=== PATIENT | female | born 1935 | race Caucasian/White ===

== ENCOUNTER 2019-10-25 13:41 | Inpatient (IN) ==
[2019-10-25 13:53] VITALS: BMI 25.8
[2019-10-25] MEDS ORDERED: NS 1000 ML 1,000 ML IV ONE ×2 (14:23→16:41)
[2019-10-25] MEDS ORDERED: NS 1000 ML 1,000 ML ONE ×2 (14:25→16:42)
--- NOTE | 2019-10-25 14:46 | DR.DIZZY ---
HPI Time seen Time Seen by Provider: 10/25/19 14:46 PCP Primary Care Physician: FRANCOISE HPI Comment HPI Comment: PATIENT IS 83YR OLD FEMALE IN ER WITH HER FAMILY MEMBER WITH HYPOTENSION, DIZZINESS AND NEAR SYNCOPAL EPISODES. HER SYMPTOMS STARTED TODAY. S YMPTOMS INCREASED WITH PATIENT SITTING UP OR STANDING HOME. HAVE HISTORY OF HYPERTENSION. SHEIS WEAK AND DRAIN OF ENERGY. NO FEVER, COUGH CONGESTION OR DYSURIA. PATIENT HAVE INDWELLING PACE MAKER THAT APPEAR TO BE WORKING FINE. Complaint Chief Complaint Doctor Comments: DIZZINESS, LOW BLOOD PRESSURE AND NEAR SYNCOPAL EPISODE NOTED TODAY. Chief Complaint:: PATIENT STATES " I BEEN FEELING DIZZY LIGHT HEAD AND ALMOST PASSED OUT TODAY. MY BLOOD PRESSURES BEEN LOW. COVID-19 Coronavirus risk:travel/contact w/high risk person: No Has patient experienced Coronavirus symptoms: No Nurses Notes Reviewed Nurses Notes Review: Yes Source History Provided: Patient Mode of Arrival Mode of Arrival: Wheelchair Timing Onset of Chief Complaint: 10/25/19 Came on: Suddenly Duration Duration: Constant Duration: Hours Location of Weakness Weakness Location: None Context Onset: At rest History of: None Stroke Symptoms: Dizziness Associated signs and symptoms Associated Signs and Symptoms: Near Syncope and Weak PMH PMH Past Medical History: Yes Past Medical History: Hypertension Past Medical History Comment: PACEMAKER Past Surgical History: Yes Surgical History: Hysterectomy and Other Family History History of Family Medical Conditions: Yes Family Medical History: Diabetes Mellitus and Heart Failure Social History Alcohol Use: None Do you use any recreational Drugs:: No Travel Risk Coronavirus risk:travel/contact w/high risk person: No Has patient experienced Coronavirus symptoms: No Infectious screening Have you traveled outside the country in the last 6 months?: No Isolation: Standard ROS Review of Systems Constitutional: No Symptoms Reported, See HPI, Weakness and Fatigue; negative Fever Eyes: No Symptoms Reported and See HPI; negative Blurred Vision and Diplopia ENTM: No Symptoms Reported and See HPI; negative Ear Pain, Nose Discharge, Nose Congestion and Throat Pain Respiratoy: See HPI and Short of Breath; negative Moist Cough and Wheezing Cardiovascular: See HPI; negative Chest Pain, Edema and Syncope (NEAR SYNCOPE.) Gastrointestinal/Abdominal: No Symptoms Reported and See HPI; negative Abdominal Pain, Diarrhea, Nausea and Vomiting Genitourinary: No Symptoms Reported and See HPI; negative Dysuria and Hematuria Neurological: See HPI, Weakness and Dizziness; negative Headache Musculoskeletal: See HPI and Back Pain; negative Muscle Pain Integumentary: See HPI and Dryness; negative Change in Color, Rash and Juandice Hematologic/Lymphatic: No Symptoms Reported and See HPI; negative Easy Bruising and Swollen Glands Endocrine: Decreased Appetite; negative Increased Thirst and Increased Urine Psychiatric: No Symptoms Reported and See HPI All Other Systems: Reviewed and Negative PE Vital Signs Vitals: Temperature 97.6 F Pulse Rate 61 Respiratory Rate 18 Blood Pressure 134/89 O2 Sat by Pulse Oximetry 99 General Limitations: No Limitations General Appearance: Alert and In Distress (ON EXERTION.) Head Head Exam: Normal Inspection and Atraumatic Eyes Eye exam: Normal Appearance, PERRL and EOMI; negative Scleral Icterus and Conjunctival Injection Pupils: Regular, Round: Bilateral and Reactive: Bilateral Sclera/Conjunctival: Normal Inspection: Bilateral ENT ENT Exam: Normal Exam, Normal Oropharynx, Normal External Ear Exam and TM's Normal Bilaterally Neck Neck Exam: Normal Inspection, Full ROM and Trachea Midline; negative Tenderness and Lymphadenopathy Chest Chest Inspection: Normal Inspection and Symmetric Chest Wall Rise; negative Tenderness Respiratory Respiratory Exam: Normal Lung Sounds Bilat; negative Accessory Muscle Use, Chest Wall Tenderness and Respiratory Distress Respiratory Exam: Bilateral: Rhonchi and Lower: Rhonchi Cardiovascular Cardiovascular Exam: Regular Rate, Normal Rhythm and Normal Heart Sounds; negative Systolic Murmur and Diastolic Murmur Abdominal Exam Abdominal Exam: Normal Inspection, Normal Bowel Sounds and Soft; negative Tenderness Rectal Rectal Exam: Deferred Extremeties Extremities Exam: Normal Inspection and Normal Capillary Refill; negative Tenderness, Edema and Calf Tenderness Back Back Exam: Normal Inspection and Full ROM; negative (R) CVA Tenderness and (L) CVA Tenderness Neurologic Neurological Exam: Alert, Oriented X3 and CN II-XII Intact; negative Motor Sensory Deficit Patient Oriented To: Person, Place and Time Speech: Fluid Speech Cranial Nerve Exam: EOM Function (II, III, IV, ): Normal, Facial Sensation (V): Normal, Facial Palsy (VII): Normal, Gag reflex (XI): Normal, Spinal Accessory Function (XI): Normal and Tongue Deviation: Normal Motor Strength - LUE: 5/5 Motor Strength - RUE: 5/5 Motor Strength - LLE: 5/5 Motor Strength - RLE: 5/5 Upper Motor Neuron Exam: Babinski Sign: Normal Psychiatric Psychiatric Exam: Normal Affect and Normal Mood Skin Skin Exam: Dry MDM Additional Information Obtained Additional Information Obtained From: Family Differential Diagnosis Differential Diagnosis: Anemia, Dehydration, Dysrhythmia, Electrolyte disorder, Hypoglycemia, Labyrinthitis, Myocardial infarction, Pulmonary embolus, TIA and Central Vertigo COURSE Treatment Treatment: SEE ORDERS. NS 1L IV BOLUS. BP IMPROVING WITH HYDRATION. Consultation Consultation Comments: DISCUSSED PATIENT WITH DR. MCDOWELL AND SHE WILL ADMIT PATIENT. Education/Counseling Education/Counseling: Patient Educated On: Diagnosis ROR Labs Reviewed Laboratory Results Reviewed?: Yes Result Diagrams: 10/27/19 20:30 10/27/19 04:00 Laboratory: 10/25/19 15:14 Blood Blood Culture - Preliminary 10/25/19 15:10 Blood Blood Culture - Preliminary WBC 10.1 X10^3/uL (3.6-10.0) H 10/25/19 14:48 RBC 3.50 X10^6/uL (3.5-5.4) 10/25/19 14:48 Hgb 11.0 g/dL (12.0-16.0) L 10/25/19 14:48 Hct 32.6 % (36.0-47.0) L 10/25/19 14:48 MCV 93.0 fL (80.0-100.0) 10/25/19 14:48 MCH 31.5 pg (27.0-34.0) 10/25/19 14:48 MCHC 33.9 g/dL (33.0-35.0) 10/25/19 14:48 RDW 13.5 % (11.6-16.5) 10/25/19 14:48 Plt Count 393 X10^3/uL (150.0-450.0) 10/25/19 14:48 MPV 7.3 fL (7.4-11.0) L 10/25/19 14:48 Neut % (Auto) 74.3 % (42.0-75.0) 10/25/19 14:48 Lymph % (Auto) 15.1 % (21.0-51.0) L 10/25/19 14:48 [place] % (Auto) 6.5 % (0.0-13.0) 10/25/19 14:48 Eos % (Auto) 2.3 % (0.9-2.9) 10/25/19 14:48 Baso % (Auto) 1.8 % (0.2-1.0) H 10/25/19 14:48 Neut # (Auto) 7.5 x10^3/uL (2.2-4.8) H 10/25/19 14:48 Lymph # (Auto) 1.5 X10^3/uL (1.3-2.9) 10/25/19 14:48 [place] # (Auto) 0.7 x10^3/uL (0.3-0.8) 10/25/19 14:48 Eos # (Auto) 0.2 x10^3/uL (0.0-0.2) 10/25/19 14:48 Baso # (Auto) 0.2 X10^3/uL (0.0-0.1) H 10/25/19 14:48 Absolute Nucleated RBC 0.1 /100WBC 10/25/19 14:48 Sodium 138 mmol/L (136-145) 10/25/19 14:48 Corrected Sodium 139 mmol/L (136-145) 10/25/19 14:48 Potassium 5.2 mmol/L (3.5-5.1) H 10/25/19 14:48 Chloride 103 mmol/L (98-107) 10/25/19 14:48 Carbon Dioxide 25.8 mmol/L (21-32) 10/25/19 14:48 BUN 67 mg/dL (7-18) H 10/25/19 14:48 Creatinine 1.30 mg/dL (0.55-1.02) H 10/25/19 14:48 Est GFR (MDRD) Af Amer 50 (>60) L 10/25/19 14:48 Est GFR (MDRD) Non-Af 42 (>60) L 10/25/19 14:48 Glucose 146 mg/dL (65-99) H 10/25/19 14:48 Lactic Acid 0.8 mmol/L (0.4-2.0) 10/25/19 14:48 Calcium 9.5 mg/dL (8.5-10.1) 10/25/19 14:48 Corrected Calcium TNP 10/25/19 14:48 Total Bilirubin 0.30 mg/dL (0.2-1.0) 10/25/19 14:48 AST 12 Units/L (15-37) L 10/25/19 14:48 ALT 16 Units/L (12-78) 10/25/19 14:48 Alkaline Phosphatase 52 Units/L (46-116) 10/25/19 14:48 Creatine Kinase 22 Units/L (26-192) L 10/25/19 14:48 CK-MB (CK-2) < 1.0 ng/mL (0-4.0) 10/25/19 14:48 CK/CKMB % Calc 4.6 % (<4) 10/25/19 14:48 Troponin I < 0.02 ng/mL (0-1.5) 10/25/19 14:48 Total Protein 7.2 g/dL (6.4-8.2) 10/25/19 14:48 Albumin 3.5 g/dL (3.4-5.0) 10/25/19 14:48 Globulin 3.7 g/dL (2.5-4.5) 10/25/19 14:48 Albumin/Globulin Ratio 0.9 Ratio (1.1-2.1) L 10/25/19 14:48 Opioid Opioid Risk Tool Age (Beny box if 16-45): No Total: 0 Total Score Risk Category: Low Risk Copyright: Ari PENA predicting aberrant behaviors Diagnosis Discharge Problem: Near syncope, Abnormal CT of brain Hypotension Qualifiers: Hypotension type: orthostatic hypotension Qualified Code(s): I95.1 - Orthostatic hypotension Acute renal failure Qualifiers: Acute renal failure type: unspecified Qualified Code(s): N17.9 - Acute kidney failure, unspecified
[2019-10-25 15:12] LABS: BASOPHILS # (AUTO) 0.2 X10^3/uL (0.0-0.1); BASOPHILS % (AUTO) 1.8 % (0.2-1.0); EOSINOPHILS # (AUTO) 0.2 x10^3/uL (0.0-0.2); EOSINOPHILS % (AUTO) 2.3 % (0.9-2.9); HEMATOCRIT 32.6 % (36.0-47.0); LYMPHOCYTES # (AUTO) 1.5 X10^3/uL (1.3-2.9); LYMPHOCYTES % (AUTO) 15.1 % (21.0-51.0); MEAN CORPUSCULAR HEMOGLOBIN 31.5 pg (27.0-34.0); MEAN CORPUSCULAR HGB CONC 33.9 g/dL (33.0-35.0); MEAN PLATELET VOLUME 7.3 fL (7.4-11.0); MONOCYTES # (AUTO) 0.7 x10^3/uL (0.3-0.8); MONOCYTES % (AUTO) 6.5 % (0.0-13.0); NEUTROPHILS # (AUTO) 7.5 x10^3/uL (2.2-4.8); NEUTROPHILS % (AUTO) 74.3 % (42.0-75.0); PLATELET COUNT 393 X10^3/uL (150.0-450.0); RED CELL DISTRIBUTION WIDTH 13.5 % (11.6-16.5); WHITE BLOOD COUNT 10.1 X10^3/uL (3.6-10.0)
[2019-10-25 15:14] LABS: BLOOD UREA NITROGEN 67 mg/dL (7-18); CALCIUM 9.5 mg/dL (8.5-10.1); CARBON DIOXIDE 25.8 mmol/L (21-32); CHLORIDE 103 mmol/L (98-107); COR NA(FOR HYPERGLY) 139 mmol/L (136-145); SODIUM 138 mmol/L (136-145); TROPONIN I < 0.02 ng/mL (0-1.5); eGFR NON BLACK RACES 42 (>60)
[2019-10-25 15:19] LABS: ALANINE AMINOTRANSFERASE 16 Units/L (12-78); ALBUMIN 3.5 g/dL (3.4-5.0); ALKALINE PHOSPHATASE 52 Units/L (46-116); ASPARTATE AMINO TRANSFERASE 12 Units/L (15-37); CKMB % 4.6 % (<4); CREATINE KINASE 22 Units/L (26-192); CREATINE KINASE MB < 1.0 ng/mL (0-4.0); TOTAL PROTEIN 7.2 g/dL (6.4-8.2)
--- NOTE | 2019-10-25 15:21 | CT ---
HISTORY: [Altered mental status]Noncontrast head CT examination.Comparison: [None].Technique:Multiple axial images of the brain were obtained from the skull base to the vertex without administration of IV contrast.Findings:There is altered cerebral CT density seen within the right parieto-occipital junction of the mid convexity cerebral cortex on image number 17 of series 4 which reflects a watershed CVA/ischemic event in the MCA/PLASTICS WORKER distribution. Follow-up with MR imaging of the brain with diffusion-weighted sequencing should be considered. There is moderate sulcal and cisternal prominence as well as atherosclerotic change in the proximal intracranial carotid and vertebral arteries, which is not out of proportion to the patient's stated age. There is diffuse CT density alteration seen in the periventricular white matter of the high and mid-convexity, which is likely in the setting of small vessel disease and not out of proportion to the patient's stated age. There is mild bilateral ex vacuo ventricular dilatation without evidence for hydrocephalus or herniation syndrome. No midline shift is evident. No acute intraparenchymal hemorrhage or mass can be identified. No extra-axial fluid collections are seen. No alteration in the attenuation of the brain parenchyma can be identified to suggest acute or subacute ischemic change. However, if clinical symptoms are concerning for an acute CVA, then follow-up MRI with DWI sequencing is recommended. The extracranial structures are unremarkable. The sinuses and mastoids are clear.IMPRESSION:Altered cerebral CT density seen within the right parieto-occipital junction of the mid convexity cerebral cortex on image number 17 of series 4 which most likely reflects a watershed CVA/ischemic event in the MCA/PLASTICS WORKER distribution. Follow-up with MR imaging of the brain with diffusion-weighted sequencing should be considered to evaluate for acuity, based on medical symptoms. No other acute intracranial process or hemorrhage seen.Electronically signed by: MORALES VILLATORO III (October 25, 2019 15:20:31)
--- NOTE | 2019-10-25 15:24 | RAD ---
HISTORYDizziness.STUDYCHEST, 1 VIEWCOMPARISONNone available.FINDINGSThe trachea is midline. The cardiac silhouette is mildly enlarged. The lungs are clear without focal infiltrate, CHF, or effusion. The bony thorax is unremarkable. There is an uncomplicated left-sided pacing device observed in place. There is a scar-like nodular density seen within the right upper lung field/right lung apex for which follow-up with outpatient noncontrast chest CT imaging will be needed when medically feasible.IMPRESSIONThe trachea is midline. The cardiac silhouette is mildly enlarged. The lungs are clear without focal infiltrate, CHF, or effusion. The bony thorax is unremarkable. There is an uncomplicated left-sided pacing device observed in place. There is a scar-like nodular density seen within the right upper lung field/right lung apex for which follow-up with outpatient noncontrast chest CT imaging will be needed when medically feasible.Electronically signed by: MORALES VILLATORO III (October 25, 2019 15:23:16)
[2019-10-25 16:04] LABS: LACTIC ACID 0.8 mmol/L (0.4-2.0)
[2019-10-25] MEDS: NS 1000 ML 1,000 ML IV SCH (19:06)
[2019-10-25 19:33] LABS: BILIRUBIN,URINE NEGATIVE (NEGATIVE); BLOOD/HEMOGLOBIN,URINE NEGATIVE (NEGATIVE); GLUCOSE, URINE NEGATIVE (NEGATIVE); KETONES,URINE NEGATIVE (NEGATIVE); LEUKOCYTE ESTERASE ,URINE 2+ (NEGATIVE); NITRITES,URINE NEGATIVE (NEGATIVE); PROTEIN,URINE NEGATIVE (NEGATIVE); UROBILINOGEN,URINE NORMAL (NORMAL)
[2019-10-25 19:46] LABS: APPEARANCE,URINE CLEAR (CLEAR); BACTERIA,URINE NEGATIVE /HPF (NEGATIVE); COLOR,URINE YELLOW (YELLOW); RBC,URINE 0-2 /HPF (0-3); SQUAMOUS EPITHELIAL CELL,UR RARE /HPF (NEGATIVE)
[2019-10-25] MEDS ORDERED: ELIQUIS PO SCH (21:00)
[2019-10-26 00:05] LABS: CKMB % 5.6 % (<4); CREATINE KINASE 18 Units/L (26-192); CREATINE KINASE MB < 1.0 ng/mL (0-4.0); TROPONIN I < 0.02 ng/mL (0-1.5)
[2019-10-26] MEDS ORDERED: KAYEXALATE SUSP ONE (00:14)
[2019-10-26] MEDS ORDERED: KAYEXALATE SUSP PO SCH (01:00)
[2019-10-26] MEDS: NS 1000 ML 1,000 ML IV SCH ×2 (02:00→14:22)
[2019-10-26 06:11] LABS: BASOPHILS % (AUTO) 0.3 % (0.2-1.0); EOSINOPHILS # (AUTO) 0.2 x10^3/uL (0.0-0.2); EOSINOPHILS % (AUTO) 2.6 % (0.9-2.9); HEMATOCRIT 24.4 % (36.0-47.0); HEMOGLOBIN 8.5 g/dL (12.0-16.0); LYMPHOCYTES # (AUTO) 2.1 X10^3/uL (1.3-2.9); LYMPHOCYTES % (AUTO) 30.3 % (21.0-51.0); MEAN CORPUSCULAR HEMOGLOBIN 31.9 pg (27.0-34.0); MEAN CORPUSCULAR HGB CONC 34.8 g/dL (33.0-35.0); MEAN CORPUSCULAR VOLUME 91.9 fL (80.0-100.0); MEAN PLATELET VOLUME 6.9 fL (7.4-11.0); MONOCYTES # (AUTO) 0.8 x10^3/uL (0.3-0.8); MONOCYTES % (AUTO) 12.1 % (0.0-13.0); NEUTROPHILS # (AUTO) 3.8 x10^3/uL (2.2-4.8); NEUTROPHILS % (AUTO) 54.7 % (42.0-75.0); PLATELET COUNT 295 X10^3/uL (150.0-450.0); RED BLOOD COUNT 2.66 X10^6/uL (3.5-5.4); RED CELL DISTRIBUTION WIDTH 13.1 % (11.6-16.5); WHITE BLOOD COUNT 6.9 X10^3/uL (3.6-10.0)
[2019-10-26 06:37] LABS: ALANINE AMINOTRANSFERASE 14 Units/L (12-78); ALBUMIN 2.7 g/dL (3.4-5.0); ALKALINE PHOSPHATASE 37 Units/L (46-116); ASPARTATE AMINO TRANSFERASE 19 Units/L (15-37); BLOOD UREA NITROGEN 41 mg/dL (7-18); CALCIUM 8.2 mg/dL (8.5-10.1); CARBON DIOXIDE 23.6 mmol/L (21-32); CHLORIDE 109 mmol/L (98-107); CHOL/HDL RATIO 3.5 (0.0-5.0); CHOLESTEROL 123 mg/dL (0-200); CKMB % 6.3 % (<4); COR CA(FOR HYPOALB) 9.2 mg/dL (8.5-10.1); CREATINE KINASE 16 Units/L (26-192); CREATINE KINASE MB < 1.0 ng/mL (0-4.0); CREATININE 1.01 mg/dL (0.55-1.02); HDL CHOLESTEROL 35 mg/dL (40-60); MAGNESIUM 1.6 mg/dL (1.7-2.9); SODIUM 142 mmol/L (136-145); TOTAL PROTEIN 5.6 g/dL (6.4-8.2); TRIGLYCERIDES 106 mg/dL (0-150); TROPONIN I < 0.02 ng/mL (0-1.5); eGFR NON BLACK RACES 56 (>60)
[2019-10-26] MEDS: ASPIRIN EC 81 MG PO SCH (09:49)
[2019-10-26] MEDS: LIPITOR TAB 20 MG PO SCH (09:50)
[2019-10-26] MEDS: BETAPACE AF PO SCH ×2 (09:50→20:26)
--- NOTE | 2019-10-26 10:52 | DR.H&P ---
H&P History & Physical for Day of: H&P Date: 10/26/19 Chief Complaint Chief Complaint: dizziness Allergies Allergies Allergy/AdvReac Type Severity Reaction Status Date / Time No Known Drug Allergies Allergy Verified 10/05/19 22:46 [NKDA] History of Present Illness History of Present Illness: Ms. Rosenthal is a 83y/o female with a PMH of atrial fibrillation, pacemaker, HTN presented with dizziness and weakness. She reports feeling dizzy as she was walking yesterday and improved with resting. She did not pass out or fall but was about to. She reports this happened several times yesterday. No associated chest pain, diaphoresis or SOB. She had a pacemaker p laced last year. Denies any changes in medications recently. Denies any neurological symptoms including weakness in extremities. Denies N/V/D or abdominal pain. She does have anemia, was told she had blood in stool and is scheduled for colonoscopy at the end of October. She denies any melena now. She does report having low BP for the last few days, unable to recall the numbers. ED work-up: CT-head: Altered cerebral CT density seen within the right parieto-occipital junction of the mid convexitycerebral cortex on image number 17 of series 4 which most likely reflects a watershed CVA/ischemic event in the MCA/PAYROLL AUDITOR distribution. CXR: scar like nodular density seen in RULQ, outpatient non-contrast CT chest recommended. Labs: Hgb: 11 on admission, now 8.5, Cr: 1.30 > 1.01, troponin x 3 (-) Mg 1.6 Received IV fluids Plan: no neurological deficits on exam, dizziness improved with hydration. Unclear if CT-head showed artifact, unable to do MRI due to pacemaker present. Will repeat CT head today. ECHO and carotid U/S ordered. Start asa, statin. Continue gentle hydration. Resume sotalol, hold anti-hypertensives for now due to AGNIESZKA on admission. Anemia panel ordered, FOBT, monitor H/H, if continues to decline further, will consult Dr. Nance Replace Mg. Check orthostatic vitals, PT/OT. Past Medical History Past Medical History: Anemia and Hypertension Additional Medical History: Atrial fibrillation Past Surgical History Surgical History: Hysterectomy and Other Additional Surgical History: Pacemaker placement Family History Family Medical History: Diabetes Mellitus, Cancer and Heart Failure Social History Alcohol Use: None Drug Use: None Medications Home Medications: No Known Drug Allergies [NKDA] Allergy (Verified 10/05/19 22:46) CONTINUE taking the following medications amlodipine 5 mg PO DAILY 10/25/19 [History] apixaban [Eliquis] 5 mg PO BID 10/25/19 [History] hydrochlorothiazide 12.5 mg PO DAILY 10/25/19 [History] lisinopril 40 mg PO DAILY 10/25/19 [History] sotalol 80 mg PO BID 10/25/19 [History] Labs Result Diagrams: 10/26/19 05:30 10/26/19 05:30 Labs: Laboratory WBC 6.9 X10^3/uL (3.6-10.0) 10/26/19 05:30 RBC 2.66 X10^6/uL (3.5-5.4) L 10/26/19 05:30 Hgb 8.5 g/dL (12.0-16.0) L D 10/26/19 05:30 Hct 24.4 % (36.0-47.0) L 10/26/19 05:30 MCV 91.9 fL (80.0-100.0) 10/26/19 05:30 MCH 31.9 pg (27.0-34.0) 10/26/19 05:30 MCHC 34.8 g/dL (33.0-35.0) 10/26/19 05:30 RDW 13.1 % (11.6-16.5) 10/26/19 05:30 Plt Count 295 X10^3/uL (150.0-450.0) 10/26/19 05:30 MPV 6.9 fL (7.4-11.0) L 10/26/19 05:30 Neut % (Auto) 54.7 % (42.0-75.0) 10/26/19 05:30 Lymph % (Auto) 30.3 % (21.0-51.0) 10/26/19 05:30 [place] % (Auto) 12.1 % (0.0-13.0) 10/26/19 05:30 Eos % (Auto) 2.6 % (0.9-2.9) 10/26/19 05:30 Baso % (Auto) 0.3 % (0.2-1.0) 10/26/19 05:30 Neut # (Auto) 3.8 x10^3/uL (2.2-4.8) 10/26/19 05:30 Lymph # (Auto) 2.1 X10^3/uL (1.3-2.9) 10/26/19 05:30 [place] # (Auto) 0.8 x10^3/uL (0.3-0.8) 10/26/19 05:30 Eos # (Auto) 0.2 x10^3/uL (0.0-0.2) 10/26/19 05:30 Baso # (Auto) 0.0 X10^3/uL (0.0-0.1) 10/26/19 05:30 Absolute Nucleated RBC 0.1 /100WBC 10/26/19 05:30 PT 16.2 SECONDS (11.8-14.3) 10/26/19 05:30 INR Target Range - 10/26/19 05:30 INR 1.34 (0.8-1.3) H 10/26/19 05:30 APTT 32.3 SECONDS (22.9-36.5) 10/26/19 05:30 PTT Comment - 10/26/19 05:30 Sodium 142 mmol/L (136-145) 10/26/19 05:30 Corrected Sodium TNP 10/26/19 05:30 Potassium 4.0 mmol/L (3.5-5.1) 10/26/19 05:30 Chloride 109 mmol/L (98-107) H 10/26/19 05:30 Carbon Dioxide 23.6 mmol/L (21-32) 10/26/19 05:30 BUN 41 mg/dL (7-18) H 10/26/19 05:30 Creatinine 1.01 mg/dL (0.55-1.02) 10/26/19 05:30 Est GFR (MDRD) Af Amer > 60 (>60) 10/26/19 05:30 Est GFR (MDRD) Non-Af 56 (>60) L 10/26/19 05:30 Glucose 83 mg/dL (65-99) 10/26/19 05:30 Lactic Acid 0.8 mmol/L (0.4-2.0) 10/25/19 14:48 Calcium 8.2 mg/dL (8.5-10.1) L 10/26/19 05:30 Corrected Calcium 9.2 mg/dL (8.5-10.1) 10/26/19 05:30 Magnesium 1.6 mg/dL (1.7-2.9) L 10/26/19 05:30 Iron 129 ug/dL (50-175) 10/26/19 05:30 Transferrin 127 mg/dL (202-364) L 10/26/19 05:30 Ferritin 490 ng/mL (8-252) H 10/26/19 05:30 Total Bilirubin 0.20 mg/dL (0.2-1.0) 10/26/19 05:30 AST 19 Units/L (15-37) 10/26/19 05:30 ALT 14 Units/L (12-78) 10/26/19 05:30 Alkaline Phosphatase 37 Units/L (46-116) L 10/26/19 05:30 Creatine Kinase 16 Units/L (26-192) L 10/26/19 05:30 CK-MB (CK-2) < 1.0 ng/mL (0-4.0) 10/26/19 05:30 CK/CKMB % Calc 6.3 % (<4) 10/26/19 05:30 Troponin I < 0.02 ng/mL (0-1.5) 10/26/19 05:30 Total Protein 5.6 g/dL (6.4-8.2) L 10/26/19 05:30 Albumin 2.7 g/dL (3.4-5.0) L 10/26/19 05:30 Globulin 2.9 g/dL (2.5-4.5) 10/26/19 05:30 Albumin/Globulin Ratio 0.9 Ratio (1.1-2.1) L 10/26/19 05:30 Triglycerides 106 mg/dL (0-150) 10/26/19 05:30 Cholesterol 123 mg/dL (0-200) 10/26/19 05:30 LDL Cholesterol, Calc 67 mg/dL (0-100) 10/26/19 05:30 HDL Cholesterol 35 mg/dL (40-60) L 10/26/19 05:30 Cholesterol/HDL Ratio 3.5 (0.0-5.0) 10/26/19 05:30 Vitamin B12 190 pg/mL (193-986) L 10/26/19 05:30 Folate 14.6 ng/mL (>8.6) 10/26/19 05:30 Specimen Type Clean catch urine 10/25/19 19:19 Urine Color Yellow (YELLOW) 10/25/19 19:19 Urine Appearance Clear (CLEAR) 10/25/19 19: Urine pH 5.0 (5.0 - 8.0) 10/25/19 19:19 Ur Specific [place] 1.015 (1.000-1.030) 10/25/19 19:19 Urine Protein Negative (NEGATIVE) 10/25/19 19:19 Urine Glucose (UA) Negative (NEGATIVE) 10/25/19 19: Urine Ketones Negative (NEGATIVE) 10/25/19 19:19 Urine Occult Blood Negative (NEGATIVE) 10/25/19 19:19 Urine Nitrite Negative (NEGATIVE) 10/25/19 19: Urine Bilirubin Negative (NEGATIVE) 10/25/19 19:19 Urine Urobilinogen Normal (NORMAL) 10/25/19 19:19 Ur Leukocyte Esterase 2+ (NEGATIVE) 10/25/19 19:19 Urine RBC 0-2 /HPF (0-3) 10/25/19 19:19 Urine WBC 0-2 /HPF (0-5) 10/25/19 19:19 Ur Squamous Epith Cells Rare /HPF (NEGATIVE) 10/25/19 19:19 Urine Bacteria Negative /HPF (NEGATIVE) 10/25/19 19:19 Ur Culture Indicated? No/not indicated 10/25/19 19:19 Review of Systems Constitutional: Weakness Eyes: No Symptoms Reported ENT: No Symptoms Reported Respiratory: No Symptoms Reported Cardiovascular: Light Headedness Gastrointestinal: No Symptoms Reported Genitourinary: No Symptoms Reported Musculoskeletal: No Symptoms Reported Skin: No Symptoms Reported Neurological: No Symptoms Reported Physical Exam Vital Signs: Temperature 98.2 F Pulse Rate [Brachial] 75 Pulse Rate 62 Respiratory Rate 20 Blood Pressure [Right Arm] 122/68 Blood Pressure 146/67 O2 Sat by Pulse Oximetry 99 Oriented: Normal Eyes: Normal Ear: Normal Throat: Normal Respiratory: Clear Throughout Cardiovascular: Normal Auscultation: Bowel Sounds: Normal Tenderness: Normal Skin: Normal Musculoskeletal: Normal Psychiatric: Normal Mood Description: Calm Affect: Normal Speech Pattern: Clear and Appropriate Assessment/Plan (1) Near syncope: Status: Acute (2) AGNIESZKA (acute kidney injury): Status: Acute (3) Dizziness: Status: Acute (4) Hypomagnesemia: Status: Acute (5) Anemia: Qualifiers: Anemia type: unspecified type Qualified Code(s): D64.9 - Anemia, unspecified Status: Acute (6) Dehydration: Status: Acute (7) Lung nodule: Status: Acute (8) Pacemaker: Status: Acute Review H&P Reviewed: Yes Patient was examined?: Yes
[2019-10-26] MEDS: MAGNESIUM SULFATE 1 GRAM/100 mL PREMIX 1 GM/100 ML BAG IV ONE ×2 (14:23→15:06)
[2019-10-26] MEDS ORDERED: MAGNESIUM SULFATE 1 GRAM/100 mL PREMIX 1 G/100 ML BAG IV ONE (14:45)
--- NOTE | 2019-10-26 16:12 | CT ---
HISTORYAltered mental status, follow-up abnormal CT 10/25/2019STUDYBRAIN W/O CONTechnique: Axial noncontrast images with coronal and sagittal reformats. Dose reduction procedures were used with mA/kv adjusted for body size.[id number]/2020FINDINGSThe ventricles are normal in size, shape, and position. Once again noted is a peripheral area of decreased attenuation involving the right posterior parietal occipital cortex and subcortical white matter. This is unchanged in appearance when compared with the prior examination. This could represent evidence for an old CVA, subacute nonhemorrhagic CVA or recent nonhemorrhagic CVA. Age related cortical atrophy is present. MRI with diffusion imaging is recommended for further evaluation. There are no other areas of abnormal attenuation to suggest hemorrhage, mass lesion, or extra-axial fluid collection. The calvarium is intact. 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 MRI with diffusion imaging is again recommended to age this process.Age related cortical atrophyElectronically signed by: PEREZ ARELLANO (October 26, 2019 16:10:25)
[2019-10-27] MEDS: NS 1000 ML 1,000 ML IV SCH ×2 (03:33→08:07)
[2019-10-27 04:53] LABS: BASOPHILS # (AUTO) 0.2 X10^3/uL (0.0-0.1); BASOPHILS % (AUTO) 2.4 % (0.2-1.0); EOSINOPHILS # (AUTO) 0.3 x10^3/uL (0.0-0.2); HEMOGLOBIN 7.6 g/dL (12.0-16.0); LYMPHOCYTES % (AUTO) 30.1 % (21.0-51.0); MEAN CORPUSCULAR HEMOGLOBIN 31.9 pg (27.0-34.0); MEAN CORPUSCULAR HGB CONC 34.4 g/dL (33.0-35.0); MEAN CORPUSCULAR VOLUME 92.6 fL (80.0-100.0); MEAN PLATELET VOLUME 6.6 fL (7.4-11.0); MONOCYTES # (AUTO) 0.8 x10^3/uL (0.3-0.8); MONOCYTES % (AUTO) 11.6 % (0.0-13.0); NEUTROPHILS # (AUTO) 3.4 x10^3/uL (2.2-4.8); NEUTROPHILS % (AUTO) 50.9 % (42.0-75.0); PLATELET COUNT 284 X10^3/uL (150.0-450.0); RED BLOOD COUNT 2.38 X10^6/uL (3.5-5.4); RED CELL DISTRIBUTION WIDTH 13.6 % (11.6-16.5); WHITE BLOOD COUNT 6.6 X10^3/uL (3.6-10.0)
[2019-10-27 04:55] LABS: BLOOD UREA NITROGEN 20 mg/dL (7-18); CALCIUM 8.2 mg/dL (8.5-10.1); CARBON DIOXIDE 25.4 mmol/L (21-32); CHLORIDE 111 mmol/L (98-107); CREATININE 0.97 mg/dL (0.55-1.02); SODIUM 144 mmol/L (136-145); eGFR NON BLACK RACES 58 (>60)
[2019-10-27 05:04] LABS: PLATELET MORPHOLOGY COMMENT NORMAL (NORMAL)
[2019-10-27] MEDS: ASPIRIN EC 81 MG PO SCH (09:35)
[2019-10-27] MEDS: LIPITOR TAB 20 MG PO SCH (09:35)
[2019-10-27] MEDS: BETAPACE AF PO SCH ×2 (09:35→20:30)
[2019-10-27] MEDS ORDERED: NS 500 ML IV 500 ML IV ONE (11:02)
--- NOTE | 2019-10-27 11:08 | PCM.PROG ---
Progress Note Progress Note for Day of Date of Exam: 10/27/19 Subjective Subjective: Patient seen at bedside, reports feeling better. She states dizziness has improved, eating well. Denies any weakness. Repeat CT-head yesterday did show the occipital-parietal region non-hemorrhagic stroke, unable to determine if it's acute or chronic without MRI. Unable to do MRI here as jeyson waite has a pacemaker. Patient has no neurological deficits. Echo and carotid U/S pending for tomorrow. Labs: hgb trending down to 7.6, M.6 B12:190, Cr: 0.9 Plan: will transfuse 1 unit PRBCs, consult Dr. Mccoy for EGD/colonoscopy, continue to hold eliquis. Stop IVF as patient is eating. Will start oral Vit B12. Replace electrolytes as needed, monitor H/H. Past Medical Family Social History Past Med/Fam/Surg Hx: No changes since H&P Allergies: Allergies No Known Drug Allergies [NKDA] Allergy (Verified 10/05/19 22:46) Review of Systems ROS: No change since H&P Vital Signs and I&O's Vital Signs: Temperature 97.6 F Pulse Rate [Left] 71 Pulse Rate [Brachial] 59 Pulse Rate 62 Respiratory Rate 20 Blood Pressure [Left Arm] 142/70 Blood Pressure [Right Arm] 124/69 Blood Pressure 146/67 O2 Sat by Pulse Oximetry 100 Intake and Output: Intake & Output 10/24/19 10/25/19 10/26/19 10/27/19 23:59 23:59 23:59 23:59 Intake Total 2220 / 2220 2540 / 2540 600 / 600 Balance 2220 / 2220 2540 / 2540 600 / 600 Physical Exam Oriented: Normal Eyes: Normal Ear: Normal Throat: Normal Cardiovascular: Normal Auscultation: Bowel Sounds: Normal Tenderness: Normal Skin: Normal Musculoskeletal: Normal Psychiatric: Normal Mood Description: Calm Affect: Normal Speech Pattern: Clear and Appropriate Laboratory and Diagnostics Result Diagrams: 10/27/19 04:00 10/27/19 04:00 Labs: 10/25/19 15:14 Blood Blood Culture - Preliminary 10/25/19 15:10 Blood Blood Culture - Preliminary Laboratory WBC 6.6 X10^3/uL (3.6-10.0) 10/27/19 04:00 RBC 2.38 X10^6/uL (3.5-5.4) L 10/27/19 04:00 Hgb 7.6 g/dL (12.0-16.0) L 10/27/19 04:00 Hct 22.0 % (36.0-47.0) L 10/27/19 04:00 MCV 92.6 fL (80.0-100.0) 10/27/19 04:00 MCH 31.9 pg (27.0-34.0) 10/27/19 04:00 MCHC 34.4 g/dL (33.0-35.0) 10/27/19 04:00 RDW 13.6 % (11.6-16.5) 10/27/19 04:00 Plt Count 284 X10^3/uL (150.0-450.0) 10/27/19 04:00 Plt Count Comment Adequate (ADEQUATE) 10/27/19 04:00 MPV 6.6 fL (7.4-11.0) L 10/27/19 04:00 Neut % (Auto) 50.9 % (42.0-75.0) 10/27/19 04:00 Lymph % (Auto) 30.1 % (21.0-51.0) 10/27/19 04:00 [place] % (Auto) 11.6 % (0.0-13.0) 10/27/19 04:00 Eos % (Auto) 5.0 % (0.9-2.9) H 10/27/19 04:00 Baso % (Auto) 2.4 % (0.2-1.0) H 10/27/19 04:00 Neut # (Auto) 3.4 x10^3/uL (2.2-4.8) 10/27/19 04:00 Lymph # (Auto) 2.0 X10^3/uL (1.3-2.9) 10/27/19 04:00 [place] # (Auto) 0.8 x10^3/uL (0.3-0.8) 10/27/19 04:00 Eos # (Auto) 0.3 x10^3/uL (0.0-0.2) H 10/27/19 04:00 Baso # (Auto) 0.2 X10^3/uL (0.0-0.1) H 10/27/19 04:00 Absolute Nucleated RBC 0.0 /100WBC 10/27/19 04:00 Plt Morphology Comment Normal (NORMAL) 10/27/19 04:00 RBC Morphology Normal (NORMAL) 10/27/19 04:00 PT 16.2 SECONDS (11.8-14.3) 10/26/19 05:30 INR Target Range - 10/26/19 05:30 INR 1.34 (0.8-1.3) H 10/26/19 05:30 APTT 32.3 SECONDS (22.9-36.5) 10/26/19 05:30 PTT Comment - 10/26/19 05:30 Sodium 144 mmol/L (136-145) 10/27/19 04:00 Corrected Sodium TNP 10/27/19 04:00 Potassium 4.0 mmol/L (3.5-5.1) 10/27/19 04:00 Chloride 111 mmol/L (98-107) H 10/27/19 04:00 Carbon Dioxide 25.4 mmol/L (21-32) 10/27/19 04:00 BUN 20 mg/dL (7-18) H 10/27/19 04:00 Creatinine 0.97 mg/dL (0.55-1.02) 10/27/19 04:00 Est GFR (MDRD) Af Amer > 60 (>60) 10/27/19 04:00 Est GFR (MDRD) Non-Af 58 (>60) L 10/27/19 04:00 Glucose 86 mg/dL (65-99) 10/27/19 04:00 Lactic Acid 0.8 mmol/L (0.4-2.0) 10/25/19 14:48 Calcium 8.2 mg/dL (8.5-10.1) L 10/27/19 04:00 Corrected Calcium 9.2 mg/dL (8.5-10.1) 10/26/19 05:30 Magnesium 1.8 mg/dL (1.7-2.9) 10/27/19 04:00 Iron 129 ug/dL (50-175) 10/26/19 05:30 Transferrin 127 mg/dL (202-364) L 10/26/19 05:30 Ferritin 490 ng/mL (8-252) H 10/26/19 05:30 Total Bilirubin 0.20 mg/dL (0.2-1.0) 10/26/19 05:30 AST 19 Units/L (15-37) 10/26/19 05:30 ALT 14 Units/L (12-78) 10/26/19 05:30 Alkaline Phosphatase 37 Units/L (46-116) L 10/26/19 05:30 Creatine Kinase 16 Units/L (26-192) L 10/26/19 05:30 CK-MB (CK-2) < 1.0 ng/mL (0-4.0) 10/26/19 05:30 CK/CKMB % Calc 6.3 % (<4) 10/26/19 05:30 Troponin I < 0.02 ng/mL (0-1.5) 10/26/19 05:30 Total Protein 5.6 g/dL (6.4-8.2) L 10/26/19 05:30 Albumin 2.7 g/dL (3.4-5.0) L 10/26/19 05:30 Globulin 2.9 g/dL (2.5-4.5) 10/26/19 05:30 Albumin/Globulin Ratio 0.9 Ratio (1.1-2.1) L 10/26/19 05:30 Triglycerides 106 mg/dL (0-150) 10/26/19 05:30 Cholesterol 123 mg/dL (0-200) 10/26/19 05:30 LDL Cholesterol, Calc 67 mg/dL (0-100) 10/26/19 05:30 HDL Cholesterol 35 mg/dL (40-60) L 10/26/19 05:30 Cholesterol/HDL Ratio 3.5 (0.0-5.0) 10/26/19 05:30 Vitamin B12 190 pg/mL (193-986) L 10/26/19 05:30 Folate 14.6 ng/mL (>8.6) 10/26/19 05:30 Specimen Type Clean catch urine 10/25/19 19:19 Urine Color Yellow (YELLOW) 10/25/19 19:19 Urine Appearance Clear (CLEAR) 10/25/19 19:19 Urine pH 5.0 (5.0 - 8.0) 10/25/19 19:19 Ur Specific [place] 1.015 (1.000-1.030) 10/25/19 19:19 Urine Protein Negative (NEGATIVE) 10/25/19 19:19 Urine Glucose (UA) Negative (NEGATIVE) 10/25/19 19:19 Urine Ketones Negative (NEGATIVE) 10/25/19 19:19 Urine Occult Blood Negative (NEGATIVE) 10/25/19 19:19 Urine Nitrite Negative (NEGATIVE) 10/25/19 19:19 Urine Bilirubin Negative (NEGATIVE) 10/25/19 19:19 Urine Urobilinogen Normal (NORMAL) 10/25/19 19:19 Ur Leukocyte Esterase 2+ (NEGATIVE) 10/25/19 19:19 Urine RBC 0-2 /HPF (0-3) 10/25/19 19:19 Urine WBC 0-2 /HPF (0-5) 10/25/19 19:19 Ur Squamous Epith Cells Rare /HPF (NEGATIVE) 10/25/19 19:19 Urine Bacteria Negative /HPF (NEGATIVE) 10/25/19 19:19 Ur Culture Indicated? No/not indicated 10/25/19 19:19 Blood Type O POSITIVE 10/27/19 09:24 Antibody Screen Negative 10/27/19 09:24 Crossmatch See Detail 10/27/19 09:24 Plan (1) Anemia: Status: Acute Qualifiers: Anemia type: unspecified type Qualified Code(s): D64.9 - Anemia, unspecified (2) Near syncope: Status: Acute (3) AGNIESZKA (acute kidney injury): Status: Acute (4) Dizziness: Status: Acute (5) Hypomagnesemia: Status: Acute (6) Dehydration: Status: Acute (7) Lung nodule: Status: Acute (8) Pacemaker: Status: Acute
[2019-10-27] MEDS: VITAMIN B-12 PO SCH (12:09)
[2019-10-27 21:06] LABS: HEMATOCRIT 24.9 % (36.0-47.0); HEMOGLOBIN 8.6 g/dL (12.0-16.0)
[2019-10-28 06:03] LABS: BLOOD UREA NITROGEN 14 mg/dL (7-18); CARBON DIOXIDE 27.2 mmol/L (21-32); CHLORIDE 110 mmol/L (98-107); CREATININE 0.88 mg/dL (0.55-1.02); SODIUM 143 mmol/L (136-145); eGFR NON BLACK RACES > 60 (>60)
[2019-10-28 06:09] LABS: BASOPHILS # (AUTO) 0.2 X10^3/uL (0.0-0.1); BASOPHILS % (AUTO) 2.6 % (0.2-1.0); EOSINOPHILS # (AUTO) 0.4 x10^3/uL (0.0-0.2); EOSINOPHILS % (AUTO) 7.1 % (0.9-2.9); HEMATOCRIT 24.4 % (36.0-47.0); HEMOGLOBIN 8.5 g/dL (12.0-16.0); LYMPHOCYTES # (AUTO) 1.7 X10^3/uL (1.3-2.9); LYMPHOCYTES % (AUTO) 27.6 % (21.0-51.0); MEAN CORPUSCULAR HEMOGLOBIN 32.3 pg (27.0-34.0); MEAN CORPUSCULAR HGB CONC 35.1 g/dL (33.0-35.0); MEAN CORPUSCULAR VOLUME 92.1 fL (80.0-100.0); MEAN PLATELET VOLUME 6.8 fL (7.4-11.0); MONOCYTES # (AUTO) 0.7 x10^3/uL (0.3-0.8); MONOCYTES % (AUTO) 11.8 % (0.0-13.0); NEUTROPHILS # (AUTO) 3.1 x10^3/uL (2.2-4.8); NEUTROPHILS % (AUTO) 50.9 % (42.0-75.0); PLATELET COUNT 274 X10^3/uL (150.0-450.0); RED BLOOD COUNT 2.65 X10^6/uL (3.5-5.4); RED CELL DISTRIBUTION WIDTH 13.3 % (11.6-16.5); WHITE BLOOD COUNT 6.1 X10^3/uL (3.6-10.0)
--- NOTE | 2019-10-28 08:49 | VAS ---
HISTORYSYNCOPE, ACUTE CVA SYMPTOMSSTUDYCarotid Doppler examCOMPARISONNoneTECHNIQUEMultiple el scale and color flow Doppler images of the right and left carotid arterial system were obtained. The vertebral arterial system was evaluated as well.FINDINGSModerate degree of plaque is present in both carotid systems.On the right, peak systolic velocities in centimeter/sec of the right internal and common carotid arteries measure 72 and 51 respectively. The greatest ICA/CCA ratio on the right is 1.42On the left, peak systolic velocities in centimeter/sec of the left internal and common carotid arteries measure 79 and 88 respectively. The greatest ICA/CCA ratio on the left is 0.90.Antegrade flow is documented in patent vertebral arteries bilaterally.IMPRESSIONNo hemodynamically significant carotid stenosis seen on either sideElectronically signed by: PHANI HOANG (October 28, 2019 08:48:25)
--- NOTE | 2019-10-28 10:17 | PCM.PROG ---
Progress Note Progress Note for Day of Date of Exam: 10/28/19 Subjective Subjective: Patient seen at bedside, reports feeling better. She states dizziness has resolved. She received one unit of RBC's yesterday. Hgb 8.5 this Am, denies active bleeding. Dr. Mccoy consulted for EGD/Colonoscopy. Patient has been NPO since midnight. Labs: Hgb: 8.5 BUN/Cr: 14/0.88 Plan: follow Dr. Mccoy's recommendations, possible EGD today and colonoscopy tomorrow. Follow up ECHO and carotid U/S. Past Medical Family Social History Past Med/Fam/Surg Hx: No changes since H&P Allergies: Allergies No Known Drug Allergies [NKDA] Allergy (Verified 10/05/19 22:46) Review of Systems ROS: No change since H&P Vital Signs and I&O's Vital Signs: Temperature 98.0 F Pulse Rate [Left] 60 Pulse Rate [Brachial] 83 Pulse Rate 62 Respiratory Rate 18 Blood Pressure [Left Arm] 155/63 Blood Pressure [Right Arm] 137/67 Blood Pressure 146/67 O2 Sat by Pulse Oximetry 99 Intake and Output: Intake & Output 10/25/19 10/26/19 10/27/19 10/28/19 23:59 23:59 23:59 23:59 Intake Total 2220 / 2220 2540 / 2540 2540 / 2540 160 / 160 Balance 2220 / 2220 2540 / 2540 2540 / 2540 160 / 160 Physical Exam Oriented: Normal Eyes: Normal Ear: Normal Throat: Normal Cardiovascular: Normal Auscultation: Bowel Sounds: Normal Tenderness: Normal Skin: Normal Musculoskeletal: Normal Psychiatric: Normal Mood Description: Calm Affect: Normal Speech Pattern: Clear and Appropriate Laboratory and Diagnostics Result Diagrams: 10/28/19 04:30 10/28/19 04:30 Labs: 10/25/19 15:14 Blood Blood Culture - Preliminary 10/25/19 15:10 Blood Blood Culture - Preliminary Laboratory WBC 6.1 X10^3/uL (3.6-10.0) 10/28/19 04:30 RBC 2.65 X10^6/uL (3.5-5.4) L 10/28/19 04:30 Hgb 8.5 g/dL (12.0-16.0) L 10/28/19 04:30 Hct 24.4 % (36.0-47.0) L 10/28/19 04:30 MCV 92.1 fL (80.0-100.0) 10/28/19 04:30 MCH 32.3 pg (27.0-34.0) 10/28/19 04:30 MCHC 35.1 g/dL (33.0-35.0) H 10/28/19 04:30 RDW 13.3 % (11.6-16.5) 10/28/19 04:30 Plt Count 274 X10^3/uL (150.0-450.0) 10/28/19 04:30 Plt Count Comment Adequate (ADEQUATE) 10/27/19 04:00 MPV 6.8 fL (7.4-11.0) L 10/28/19 04:30 Neut % (Auto) 50.9 % (42.0-75.0) 10/28/19 04:30 Lymph % (Auto) 27.6 % (21.0-51.0) 10/28/19 04:30 [place] % (Auto) 11.8 % (0.0-13.0) 10/28/19 04:30 Eos % (Auto) 7.1 % (0.9-2.9) H 10/28/19 04:30 Baso % (Auto) 2.6 % (0.2-1.0) H 10/28/19 04:30 Neut # (Auto) 3.1 x10^3/uL (2.2-4.8) 10/28/19 04:30 Lymph # (Auto) 1.7 X10^3/uL (1.3-2.9) 10/28/19 04:30 [place] # (Auto) 0.7 x10^3/uL (0.3-0.8) 10/28/19 04:30 Eos # (Auto) 0.4 x10^3/uL (0.0-0.2) H 10/28/19 04:30 Baso # (Auto) 0.2 X10^3/uL (0.0-0.1) H 10/28/19 04:30 Absolute Nucleated RBC 0.0 /100WBC 10/28/19 04:30 Plt Morphology Comment Normal (NORMAL) 10/27/19 04:00 RBC Morphology Normal (NORMAL) 10/27/19 04:00 PT 16.2 SECONDS (11.8-14.3) 10/26/19 05:30 INR Target Range - 10/26/19 05:30 INR 1.34 (0.8-1.3) H 10/26/19 05:30 APTT 32.3 SECONDS (22.9-36.5) 10/26/19 05:30 PTT Comment - 10/26/19 05:30 Sodium 143 mmol/L (136-145) 10/28/19 04:30 Corrected Sodium TNP 10/28/19 04:30 Potassium 3.8 mmol/L (3.5-5.1) 10/28/19 04:30 Chloride 110 mmol/L (98-107) H 10/28/19 04:30 Carbon Dioxide 27.2 mmol/L (21-32) 10/28/19 04:30 BUN 14 mg/dL (7-18) 10/28/19 04:30 Creatinine 0.88 mg/dL (0.55-1.02) 10/28/19 04:30 Est GFR (MDRD) Af Amer > 60 (>60) 10/28/19 04:30 Est GFR (MDRD) Non-Af > 60 (>60) 10/28/19 04:30 Glucose 86 mg/dL (65-99) 10/28/19 04:30 Lactic Acid 0.8 mmol/L (0.4-2.0) 10/25/19 14:48 Calcium 8.0 mg/dL (8.5-10.1) L 10/28/19 04:30 Corrected Calcium 9.2 mg/dL (8.5-10.1) 10/26/19 05:30 Magnesium 1.8 mg/dL (1.7-2.9) 10/27/19 04:00 Iron 129 ug/dL (50-175) 10/26/19 05:30 Transferrin 127 mg/dL (202-364) L 10/26/19 05:30 Ferritin 490 ng/mL (8-252) H 10/26/19 05:30 Total Bilirubin 0.20 mg/dL (0.2-1.0) 10/26/19 05:30 AST 19 Units/L (15-37) 10/26/19 05:30 ALT 14 Units/L (12-78) 10/26/19 05:30 Alkaline Phosphatase 37 Units/L (46-116) L 10/26/19 05:30 Creatine Kinase 16 Units/L (26-192) L 10/26/19 05:30 CK-MB (CK-2) < 1.0 ng/mL (0-4.0) 10/26/19 05:30 CK/CKMB % Calc 6.3 % (<4) 10/26/19 05:30 Troponin I < 0.02 ng/mL (0-1.5) 10/26/19 05:30 Total Protein 5.6 g/dL (6.4-8.2) L 10/26/19 05:30 Albumin 2.7 g/dL (3.4-5.0) L 10/26/19 05:30 Globulin 2.9 g/dL (2.5-4.5) 10/26/19 05:30 Albumin/Globulin Ratio 0.9 Ratio (1.1-2.1) L 10/26/19 05:30 Triglycerides 106 mg/dL (0-150) 10/26/19 05:30 Cholesterol 123 mg/dL (0-200) 10/26/19 05:30 LDL Cholesterol, Calc 67 mg/dL (0-100) 10/26/19 05:30 HDL Cholesterol 35 mg/dL (40-60) L 10/26/19 05:30 Cholesterol/HDL Ratio 3.5 (0.0-5.0) 10/26/19 05:30 Vitamin B12 190 pg/mL (193-986) L 10/26/19 05:30 Folate 14.6 ng/mL (>8.6) 10/26/19 05:30 Specimen Type Clean catch urine 10/25/19 19:19 Urine Color Yellow (YELLOW) 10/25/19 19:19 Urine Appearance Clear (CLEAR) 10/25/19 19: Urine pH 5.0 (5.0 - 8.0) 10/25/19 19:19 Ur Specific [place] 1.015 (1.000-1.030) 10/25/19 19:19 Urine Protein Negative (NEGATIVE) 10/25/19 19:19 Urine Glucose (UA) Negative (NEGATIVE) 05/15/20 19:19 Urine Ketones Negative (NEGATIVE) 10/25/19 19:19 Urine Occult Blood Negative (NEGATIVE) 10/25/19 19:19 Urine Nitrite Negative (NEGATIVE) 10/25/19 19:19 Urine Bilirubin Negative (NEGATIVE) 10/25/19 19:19 Urine Urobilinogen Normal (NORMAL) 10/25/19 19:19 Ur Leukocyte Esterase 2+ (NEGATIVE) 10/25/19 19:19 Urine RBC 0-2 /HPF (0-3) 10/25/19 19:19 Urine WBC 0-2 /HPF (0-5) 10/25/19 19:19 Ur Squamous Epith Cells Rare /HPF (NEGATIVE) 10/25/19 19:19 Urine Bacteria Negative /HPF (NEGATIVE) 10/25/19 19:19 Ur Culture Indicated? No/not indicated 10/25/19 19:19 Blood Type O POSITIVE 10/27/19 09:24 Antibody Screen Negative 10/27/19 09:24 Crossmatch See Detail 10/27/19 09:24 Plan (1) Anemia: Status: Acute Qualifiers: Anemia type: unspecified type Qualified Code(s): D64.9 - Anemia, unspecified (2) Near syncope: Status: Acute (3) AGNIESZKA (acute kidney injury): Status: Acute (4) Dizziness: Status: Acute (5) Hypomagnesemia: Status: Acute (6) Dehydration: Status: Acute (7) Lung nodule: Status: Acute (8) Pacemaker: Status: Acute
[2019-10-28] MEDS ORDERED: DIPRIVAN VIAL 20 ML ONE (11:07)
[2019-10-28] MEDS ORDERED: LR 1000 ML IV 1,000 ML IV ONE (11:11)
--- NOTE | 2019-10-28 11:37 | OR.IMMED ---
Immediate Post-Op Note - Immediate Post-Op Note Pre-Op Diagnosis: anemia Post-Op Diagnosis: gastriculcer . Procedure: EGD with Bx Surgeon/Buckle Gluer: Aurelia Specimens Removed: Bx from antrum , DU Drains: NONE Complications: none Condition: Stable (on Carafate , Protonix , [place] diet .)
[2019-10-28] MEDS: CARAFATE ORAL SUSP PO SCH ×3 (13:19→21:04)
[2019-10-28] MEDS: PROTONIX INJ 40 MG VIAL IVP SCH ×2 (13:19→21:05)
[2019-10-28] MEDS: VITAMIN B-12 PO SCH (13:19)
[2019-10-28] MEDS: ASPIRIN EC 81 MG PO SCH (13:19)
[2019-10-28] MEDS: BETAPACE AF PO SCH ×2 (13:20→21:05)
[2019-10-28] MEDS: LIPITOR TAB 20 MG PO SCH (13:20)
[2019-10-29] MEDS: CARAFATE ORAL SUSP PO SCH (05:31)
[2019-10-29 06:10] LABS: BASOPHILS # (AUTO) 0.1 X10^3/uL (0.0-0.1); BASOPHILS % (AUTO) 1.4 % (0.2-1.0); EOSINOPHILS # (AUTO) 0.5 x10^3/uL (0.0-0.2); EOSINOPHILS % (AUTO) 6.2 % (0.9-2.9); HEMATOCRIT 24.7 % (36.0-47.0); HEMOGLOBIN 8.5 g/dL (12.0-16.0); LYMPHOCYTES # (AUTO) 1.6 X10^3/uL (1.3-2.9); LYMPHOCYTES % (AUTO) 19.7 % (21.0-51.0); MEAN CORPUSCULAR HEMOGLOBIN 32.1 pg (27.0-34.0); MEAN CORPUSCULAR HGB CONC 34.4 g/dL (33.0-35.0); MEAN CORPUSCULAR VOLUME 93.2 fL (80.0-100.0); MEAN PLATELET VOLUME 7.6 fL (7.4-11.0); MONOCYTES # (AUTO) 0.8 x10^3/uL (0.3-0.8); MONOCYTES % (AUTO) 10.2 % (0.0-13.0); NEUTROPHILS # (AUTO) 5.1 x10^3/uL (2.2-4.8); NEUTROPHILS % (AUTO) 62.5 % (42.0-75.0); PLATELET COUNT 267 X10^3/uL (150.0-450.0); RED BLOOD COUNT 2.65 X10^6/uL (3.5-5.4); RED CELL DISTRIBUTION WIDTH 13.5 % (11.6-16.5); WHITE BLOOD COUNT 8.2 X10^3/uL (3.6-10.0)
[2019-10-29 06:11] LABS: BLOOD UREA NITROGEN 15 mg/dL (7-18); CALCIUM 8.4 mg/dL (8.5-10.1); CARBON DIOXIDE 26.2 mmol/L (21-32); CHLORIDE 110 mmol/L (98-107); CREATININE 0.98 mg/dL (0.55-1.02); SODIUM 143 mmol/L (136-145); eGFR NON BLACK RACES 58 (>60)
[2019-10-29] MEDS ORDERED: MIRALAX POWDER (1 DOSE 17 G) PO ONE (08:11)
[2019-10-29] MEDS: ASPIRIN EC 81 MG PO SCH (08:46)
[2019-10-29] MEDS: LIPITOR TAB 20 MG PO SCH (08:46)
[2019-10-29] MEDS: VITAMIN B-12 PO SCH (08:47)
[2019-10-29] MEDS: PROTONIX INJ 40 MG VIAL IVP SCH (08:47)
[2019-10-29] MEDS: BETAPACE AF PO SCH (08:47)
[2019-10-29] MEDS ORDERED: COLACE SYRUP 100 MG UDC PO SCH (09:00)
[2019-10-29 12:00] VITALS: BP 129/60
== END 2019-10-29 16:37 | disposition home health service (06) | DRG 312 ==
LOC: ER 13:43 → MED/SURG 17:56
PROVIDERS: ADMIT Internal Medicine; ATTEND Internal Medicine
DX: R42 Dizziness and giddiness; I48.91 Unspecified atrial fibrillation; E86.0 Dehydration; Z11.59 Encounter for screening for other viral diseases; R93.0 Abnormal findings on diagnostic imaging of skull and head, not elsewhere classified; R91.1 Solitary pulmonary nodule; N17.8 Other acute kidney failure; Z87.11 Personal history of peptic ulcer disease; R94.31 Abnormal electrocardiogram [ECG] [EKG]; K25.3 Acute gastric ulcer without hemorrhage or perforation; D64.89 Other specified anemias; Z95.0 Presence of cardiac pacemaker; R41.82 Altered mental status, unspecified; K44.9 Diaphragmatic hernia without obstruction or gangrene; E83.42 Hypomagnesemia; R26.89 Other abnormalities of gait and mobility; I95.1 Orthostatic hypotension
CPT/HCPCS: 36415; 70450; 71010; 71045; 80048; 80053; 80061; 81001; 82378; 82550; 82553; 82607; 82728; 82746; 83540; 83605; 83735; 84466; 84484; 85014; 85018; 85025; 85610; 85730; 86850; 86900; 86901; 86922; 87040; 87635; 88112; 88305; 88342; 93005; 93306; 93880; 94760; 96365; 96367; 97110; 97161; 97166; 97535; 99100; 99284; A4222; C9113; J3475; J7030; J7040; P9016

== ENCOUNTER 2021-06-14 18:16 | Inpatient (IN) ==
[2021-06-14 18:32] VITALS: BMI 28.1
[2021-06-14 19:30] LABS: ABG ALLEN TEST POS; ABG BASE EXCESS 4.2 mmol/L (-2.0-2.0); ABG HCO3 28.4 mmol/L (22-26)
[2021-06-14 19:33] LABS: BASOPHILS % (AUTO) 0.5 % (0.2-1.0); EOSINOPHILS % (AUTO) 0.1 % (0.9-2.9); HEMOGLOBIN 12.8 g/dL (12.0-16.0); LYMPHOCYTES # (AUTO) 0.4 X10^3/uL (1.3-2.9); LYMPHOCYTES % (AUTO) 6.7 % (21.0-51.0); MEAN CORPUSCULAR HEMOGLOBIN 30.6 pg (27.0-34.0); MEAN CORPUSCULAR HGB CONC 34.6 g/dL (33.0-35.0); MEAN CORPUSCULAR VOLUME 88.7 fL (80.0-100.0); MEAN PLATELET VOLUME 7.4 fL (7.4-11.0); MONOCYTES # (AUTO) 1.2 x10^3/uL (0.3-0.8); MONOCYTES % (AUTO) 20.9 % (0.0-13.0); NEUTROPHILS # (AUTO) 4.1 x10^3/uL (2.2-4.8); NEUTROPHILS % (AUTO) 71.8 % (42.0-75.0); PLATELET COUNT 199 X10^3/uL (150.0-450.0); RED BLOOD COUNT 4.17 X10^6/uL (3.5-5.4); RED CELL DISTRIBUTION WIDTH 13.9 % (11.6-16.5); WHITE BLOOD COUNT 5.8 X10^3/uL (3.6-10.0)
--- NOTE | 2021-06-14 19:40 | DR.SOBA ---
HPI Time Seen Time Seen by Provider: 06/14/21 19:40 Primary Care Physician Primary Care Physician: ERICANT Complaints Chief Complaint:: PT TESTED POSITIVE FOR COVID ON MONDAY AT [facility] AND PT STATES SHE HAS GOTTEN SICKER. SHE IS C/O DYSPNEA, "COUGHING ALOT, WEAK". PT DENIES FEVER. PRODUCTIVE COUGH. DENIES N/V/D Self Treatment fo Chief Complaint: PT WAS PRESCRIBED BENZONATATE AND LEVOCETIRIZINE AT [facility] AND IS CONTINUING TO TAKE THESE. COVID-19 Coronavirus risk:travel/contact w/high risk person: Yes Has patient experienced Coronavirus symptoms: Yes Coronavirus symptoms experienced: Coughing and Shortness of Breath Source History Provided: Patient and Family Member Mode of Arrival Mode of Arrival: Wheelchair Timing Onset of Chief Complaint: 06/11/21 PMH PMH Past Medical History: Yes Past Medical History: Anemia and Hypertension Past Surgical History: Yes Surgical History: Hysterectomy and Other Past Surgical History Comment: PACEMAKER Family History History of Family Medical Conditions: Yes Family Medical History: Diabetes Mellitus, Cancer and Heart Failure Social History Does any household member use tobacco: No Alcohol Use: None Do you use any recreational Drugs:: No Lives With: Alone Lives Where: Home Travel Risk Coronavirus risk:travel/contact w/high risk person: Yes Has patient experienced Coronavirus symptoms: Yes Coronavirus symptoms experienced: Coughing and Shortness of Breath Infectious screening In the last 2 months have you had wt loss of >10#?: NO Have you had fever, night sweats or hemotysis?: No Have you traveled outside the country in the last 6 months?: No Isolation: Air[place]/Negative Pressure PE Vital Signs Vitals: Temperature 98.8 F Pulse Rate [Left Brachial] 68 Pulse Rate 79 Respiratory Rate 20 Blood Pressure [Left Arm] 167/64 Blood Pressure 177/84 O2 Sat by Pulse Oximetry 95 ROR Labs Reviewed Result Diagrams: 06/15/21 04:12 06/15/21 04:12 Laboratory: WBC 5.8 X10^3/uL (3.6-10.0) 06/14/21 19:18 RBC 4.17 X10^6/uL (3.5-5.4) 06/14/21 19:18 Hgb 12.8 g/dL (12.0-16.0) 06/14/21 19:18 Hct 37.0 % (36.0-47.0) 06/14/21 19:18 MCV 88.7 fL (80.0-100.0) 06/14/21 19:18 MCH 30.6 pg (27.0-34.0) 06/14/21 19:18 MCHC 34.6 g/dL (33.0-35.0) 06/14/21 19:18 RDW 13.9 % (11.6-16.5) 06/14/21 19:18 Plt Count 199 X10^3/uL (150.0-450.0) 06/14/21 19:18 Plt Count Comment Adequate (ADEQUATE) 06/14/21 19:18 MPV 7.4 fL (7.4-11.0) 06/14/21 19:18 Neut % (Auto) 71.8 % (42.0-75.0) 06/14/21 19:18 Lymph % (Auto) 6.7 % (21.0-51.0) L 06/14/21 19:18 [place] % (Auto) 20.9 % (0.0-13.0) H 06/14/21 19:18 Eos % (Auto) 0.1 % (0.9-2.9) L 06/14/21 19:18 Baso % (Auto) 0.5 % (0.2-1.0) 06/14/21 19:18 Neut # (Auto) 4.1 x10^3/uL (2.2-4.8) 06/14/21 19:18 Lymph # (Auto) 0.4 X10^3/uL (1.3-2.9) L 06/14/21 19:18 [place] # (Auto) 1.2 x10^3/uL (0.3-0.8) H 06/14/21 19:18 Eos # (Auto) 0.0 x10^3/uL (0.0-0.2) 06/14/21 19:18 Baso # (Auto) 0.0 X10^3/uL (0.0-0.1) 06/14/21 19:18 Absolute Nucleated RBC 0.1 /100WBC 06/14/21 19:18 Total Counted 100 06/14/21 19:18 Neutrophils % (Manual) 74 % (39-76) 06/14/21 19:18 Lymphocytes % (Manual) 11 % (13-43) L 06/14/21 19:18 Monocytes % (Manual) 15 % (4-9) H 06/14/21 19:18 Plt Morphology Comment Normal (NORMAL) 06/14/21 19:18 RBC Morphology Normal (NORMAL) 06/14/21 19:18 PT 14.5 SECONDS (11.8-14.3) 06/14/21 19:18 INR Target Range - 06/14/21 19:18 INR 1.19 (0.8-1.3) 06/14/21 19:18 APTT 37.9 SECONDS (22.9-36.5) H 06/14/21 19:18 PTT Comment - 06/14/21 19:18 [facility] 06/14/21 19:25 ABG pH 7.460 (7.35-7.45) H 06/14/21 19:25 ABG pCO2 40.0 mmHg (35.0-45.0) 06/14/21 19:25 ABG pO2 64.0 mmHg (80.0-100.0) L 06/14/21 19:25 ABG HCO3 28.4 mmol/L (22-26) H 06/14/21 19:25 ABG O2 Saturation 93.0 % (90-100) 06/14/21 19:25 ABG Base Excess 4.2 mmol/L (-2.0-2.0) H 06/14/21 19:25 Seferino Test Pos 06/14/21 19:25 A-a Gradient 36.0 mmHg 06/14/21 19:25 FiO2 21.0 06/14/21 19:25 Blood Gas Comments [facility] well [facility] 06/14/21 19:25 Sodium 131 mmol/L (136-145) L 06/14/21 19:18 Corrected Sodium TNP 06/14/21 19:18 Potassium 3.1 mmol/L (3.5-5.1) L 06/14/21 19:18 Chloride 96 mmol/L (98-107) L 06/14/21 19:18 Carbon Dioxide 28.3 mmol/L (21-32) 06/14/21 19:18 BUN 16 mg/dL (7-18) 06/14/21 19:18 Creatinine 1.16 mg/dL (0.55-1.02) H 06/14/21 19:18 Est GFR (MDRD) Af Amer 57 (>60) L 06/14/21 19:18 Est GFR (MDRD) Non-Af 47 (>60) L 06/14/21 19:18 Glucose 110 mg/dL (65-99) H 06/14/21 19:18 Calcium 8.7 mg/dL (8.5-10.1) 06/14/21 19:18 Corrected Calcium 9.4 mg/dL (8.5-10.1) 06/14/21 19:18 Magnesium 1.9 mg/dL (1.7-2.9) 06/14/21 19:18 Total Bilirubin 0.50 mg/dL (0.2-1.0) 06/14/21 19:18 AST 25 Units/L (15-37) 06/14/21 19:18 ALT 20 Units/L (12-78) 06/14/21 19:18 Alkaline Phosphatase 41 Units/L (46-116) L 06/14/21 19:18 Creatine Kinase 123 Units/L (26-192) 06/14/21 19:18 CK-MB (CK-2) < 1.0 ng/mL (0-4.0) 06/14/21 19:18 CK/CKMB % Calc 0.8 % (<4) 06/14/21 19:18 Troponin I < 0.02 ng/mL (0-1.5) 06/14/21 19:18 Total Protein 6.9 g/dL (6.4-8.2) 06/14/21 19:18 Albumin 3.1 g/dL (3.4-5.0) L 06/14/21 19:18 Globulin 3.8 g/dL (2.5-4.5) 06/14/21 19:18 Albumin/Globulin Ratio 0.8 Ratio (1.1-2.1) L 06/14/21 19:18 Specimen Type Clean catch urine 06/14/21 20:34 Urine Color Yellow (YELLOW) 06/14/21 20:34 Urine Appearance Clear (CLEAR) 06/14/21 20:34 Urine pH 6.0 (5.0 - 8.0) 06/14/21 20:34 Ur Specific [place] 1.010 (1.000-1.030) 06/14/21 20:34 Urine Protein 3+ (NEGATIVE) 06/14/21 20:34 Urine Glucose (UA) Negative (NEGATIVE) 06/14/21 20:34 Urine Ketones 1+ (NEGATIVE) 06/14/21 20:34 Urine Occult Blood 1+ (NEGATIVE) 06/14/21 20:34 Urine Nitrite Negative (NEGATIVE) 06/14/21 20:34 Urine Bilirubin Negative (NEGATIVE) 06/14/21 20:34 Urine Urobilinogen Normal (NORMAL) 06/14/21 20:34 Ur Leukocyte Esterase 2+ (NEGATIVE) 06/14/21 20:34 Urine RBC 3-5 /HPF (0-3) A 06/14/21 20:34 Urine WBC 5-10 /HPF (0-5) A 06/14/21 20:34 Ur Squamous Epith Cells Few /HPF (NEGATIVE) 06/14/21 20:34 Urine Bacteria Trace /HPF (NEGATIVE) 06/14/21 20:34 Ur Culture Indicated? No/not indicated 06/14/21 20:34 SARS-CoV-2 (PCR) Positive (NEGATIVE) A 06/14/21 22:02 Influenza Type A (PCR) Negative (NEGATIVE) 06/14/21 22:02 Influenza Type B (PCR) Negative (NEGATIVE) 06/14/21 22:02 RSV (PCR) Negative (NEGATIVE) 06/14/21 22:02 Opioid Opioid Risk Tool Age (Beny box if 16-45): No History of Preadolescent Sexual Abuse: No Total: 0 Total Score Risk Category: Low Risk Copyright: Ari [employer] predicting aberrant behaviors Diagnosis Discharge Problem: COVID-19 virus infection, Pneumonia, Acute respiratory distress, Generalized weakness Instructions Forms: Precautions for COVID19 [facility] Social Distancing
[2021-06-14 19:51] LABS: PLATELET MORPHOLOGY COMMENT NORMAL (NORMAL)
[2021-06-14 19:53] LABS: ALANINE AMINOTRANSFERASE 20 Units/L (12-78); ALBUMIN 3.1 g/dL (3.4-5.0); ALKALINE PHOSPHATASE 41 Units/L (46-116); ASPARTATE AMINO TRANSFERASE 25 Units/L (15-37); BLOOD UREA NITROGEN 16 mg/dL (7-18); CALCIUM 8.7 mg/dL (8.5-10.1); CARBON DIOXIDE 28.3 mmol/L (21-32); CHLORIDE 96 mmol/L (98-107); CKMB % 0.8 % (<4); COR CA(FOR HYPOALB) 9.4 mg/dL (8.5-10.1); CREATINE KINASE 123 Units/L (26-192); CREATINE KINASE MB < 1.0 ng/mL (0-4.0); CREATININE 1.16 mg/dL (0.55-1.02); SODIUM 131 mmol/L (136-145); TOTAL PROTEIN 6.9 g/dL (6.4-8.2); eGFR NON BLACK RACES 47 (>60)
[2021-06-14] MEDS ORDERED: NS 1,000 ML IV 1,000 ML ONE (20:10)
--- NOTE | 2021-06-14 20:30 | RAD ---
HISTORYCOVID +, DYSPNEA Relevant Clinical InformationSTUDYCHEST, 1 [id number] cardiac silhouette enlargement. There is left subclavian approach cardiac device and leads. There are hazy peripheral and lower lung opacities. No dense consolidation or overt edema. No significant pleural effusion.IMPRESSIONHazy lung opacities suggestive for an atypical/viral pneumonitis.Cardiomegaly without evidence for CHF.Electronically signed by: TOM HOWE (Jun 14, 2021 20:29:04)
[2021-06-14] MEDS: NS 1,000 ML IV 1,000 ML IV SCH (20:41)
[2021-06-14 20:48] LABS: BILIRUBIN,URINE NEGATIVE (NEGATIVE); BLOOD/HEMOGLOBIN,URINE 1+ (NEGATIVE); GLUCOSE, URINE NEGATIVE (NEGATIVE); KETONES,URINE 1+ (NEGATIVE); LEUKOCYTE ESTERASE ,URINE 2+ (NEGATIVE); NITRITES,URINE NEGATIVE (NEGATIVE); PROTEIN,URINE 3+ (NEGATIVE); UROBILINOGEN,URINE NORMAL (NORMAL)
[2021-06-14 20:54] LABS: APPEARANCE,URINE CLEAR (CLEAR); COLOR,URINE YELLOW (YELLOW)
[2021-06-14 20:55] LABS: BACTERIA,URINE TRACE /HPF (NEGATIVE); SQUAMOUS EPITHELIAL CELL,UR FEW /HPF (NEGATIVE)
[2021-06-15] MEDS ORDERED: KLOR-CON PO PRN (00:27)
[2021-06-15] MEDS ORDERED: POTASSIUM CHL 40 MEQ/NS 0.45% 500 ML IV PRN (00:27)
[2021-06-15] MEDS ORDERED: K-RIDER 10 MEQ/NS 100 ML 10 MEQ/100 ML BAG IV PRN (00:27)
[2021-06-15] MEDS ORDERED: POTASSIUM CHLORIDE LIQ 20 MEQ UDC PO PRN (00:27)
[2021-06-15] MEDS ORDERED: POTASSIUM CHL 60 MEQ/NS 0.45% 500 ML IV PRN (00:27)
[2021-06-15] MEDS ORDERED: MICRO K EXTEN CAP 10 MEQ PO PRN (00:27)
[2021-06-15] MEDS ORDERED: CATAPRES TAB 0.1 MG PO ONE (00:30)
[2021-06-15] MEDS: NS 1,000 ML IV 1,000 ML IV SCH ×4 (00:51→13:39)
[2021-06-15] MEDS: K-DUR TAB 20 MEQ PO PRN ×2 (01:39→08:09)
[2021-06-15 05:14] LABS: BASOPHILS % (AUTO) 0.5 % (0.2-1.0); HEMATOCRIT 35.5 % (36.0-47.0); HEMOGLOBIN 12.1 g/dL (12.0-16.0); LYMPHOCYTES # (AUTO) 0.4 X10^3/uL (1.3-2.9); LYMPHOCYTES % (AUTO) 6.9 % (21.0-51.0); MEAN CORPUSCULAR HEMOGLOBIN 30.6 pg (27.0-34.0); MEAN CORPUSCULAR VOLUME 89.9 fL (80.0-100.0); MEAN PLATELET VOLUME 8.1 fL (7.4-11.0); MONOCYTES # (AUTO) 1.1 x10^3/uL (0.3-0.8); MONOCYTES % (AUTO) 18.1 % (0.0-13.0); NEUTROPHILS # (AUTO) 4.6 x10^3/uL (2.2-4.8); NEUTROPHILS % (AUTO) 74.5 % (42.0-75.0); PLATELET COUNT 181 X10^3/uL (150.0-450.0); RED BLOOD COUNT 3.94 X10^6/uL (3.5-5.4); RED CELL DISTRIBUTION WIDTH 13.4 % (11.6-16.5); WHITE BLOOD COUNT 6.1 X10^3/uL (3.6-10.0)
[2021-06-15 05:20] LABS: ALANINE AMINOTRANSFERASE 16 Units/L (12-78); ALBUMIN 2.6 g/dL (3.4-5.0); ALKALINE PHOSPHATASE 36 Units/L (46-116); ASPARTATE AMINO TRANSFERASE 22 Units/L (15-37); BLOOD UREA NITROGEN 12 mg/dL (7-18); CALCIUM 8.1 mg/dL (8.5-10.1); CARBON DIOXIDE 28.9 mmol/L (21-32); CHLORIDE 100 mmol/L (98-107); COR CA(FOR HYPOALB) 9.2 mg/dL (8.5-10.1); COR NA(FOR HYPERGLY) 135 mmol/L (136-145); CREATININE 0.86 mg/dL (0.55-1.02); MAGNESIUM 1.6 mg/dL (1.7-2.9); SODIUM 134 mmol/L (136-145); eGFR NON BLACK RACES > 60 (>60)
[2021-06-15] MEDS: MAGNESIUM SULFATE 1 GRAM/100 mL PREMIX 1 G/100 ML BAG IV PRN ×2 (06:00→08:10)
[2021-06-15] MEDS: SOLU-Medrol 40 MG VIAL IVP SCH ×3 (08:07→21:26)
[2021-06-15] MEDS: ASCORBIC ACID INJ MULTI-DOSE VIAL 1,500 MG in NS 100 ML IV 100 ML IV SCH ×3 (08:22→21:25)
[2021-06-15] MEDS: PEPCID TAB 40 MG PO SCH ×2 (08:31→21:25)
[2021-06-15] MEDS: ZINC SULFATE PO SCH ×2 (08:32→21:26)
[2021-06-15] MEDS: VIBRAMYCIN PO SCH ×2 (08:32→21:26)
[2021-06-15] MEDS ORDERED: VITAMIN A PO SCH (09:00)
[2021-06-15] MEDS ORDERED: TRICOR TAB 160 MG PO SCH (09:00)
[2021-06-15] MEDS ORDERED: VITAMIN D (1.25MG) PO SCH (09:00)
[2021-06-15] MEDS ORDERED: LOVENOX INJ 30 MG SYR SC SCH (09:00)
[2021-06-15] MEDS: PULMICORT NEB TX 0.5 MG NEB SCH ×2 (09:15→20:40)
[2021-06-15] MEDS: BROVANA IN SCH ×2 (09:15→20:40)
[2021-06-15] MEDS ORDERED: REGEN-COV VIAL 10 ML, DRUG FILTER EXTENSION SET * 1 EA in NS 100 ML IV 100 ML IV ONE ×2 (09:25)
--- NOTE | 2021-06-15 16:03 | DR.H&P ---
H&P - History & Physical for Day of: H&P Date: 06/15/21 - Chief Complaint Chief Complaint: SHORTNESS OF BREATH, COUGH, WEAKNESS - History of Present Illness History of Present Illness: IS A 45 YEAR OLD WHITE FEMALE. SHE PRESENTED TO THE ER WITH REPORTS OF INCREASING SHORTNESS OF BREATH, WEAKNESS, AND NON-PRODUCTIVE COUGH. SHE DENIES NAUSEA, VOMITING, OR DIARRHEA. SHE ADMITS TO TESTING POSITIVE FOR COVID-19 ON 06/11/21. SHE WAS PRESCRIBED BENZONATATE AND LEVOCETIRIZINE. SHE HAS ALSO BEEN TAKING TYLENOL AT HOME WITHOUT IMPROVEMENT IN SYMPTOMS. HER PMH INCLUDES: ANEMIA, HYPERTENSION, HYSTERECTOMY, AND PACEMAKER. AUSCULTATION OF LUNG CANALES REVEALED DIMINISHED LUNG SOUNDS THROUGHOUT. ON ARRIVAL, HER VITALS WERE 98.8-79-20-95%-177/84. LABS WERE OBTAINED. ABNORMAL LAB VALUES INCLUDED THE FOLLOWING: D-DIMER 0.76, SODIUM 131, POTASSIUM 3.1, CHLORIDE 96, CREATININE 1.16, GLUCOSE 110, ALK PHOS 41, ALBUMIN 3.1. COVID-19 POSITIVE. RSV AND INFLUENZA WERE NEGATIVE. URINALYSIS OBTAINED AND REVEALED: WBC 5-10, RBC 3-5, LEUKOCYTES 2+, BACTERIA TRACE. A CHEST XRAY WAS OBTAINED AND REVEALED: Hazy lung opacities suggestive for an atypical/viral pneumonitis. Cardiomegaly without evidence for CHF. EKG REVEALED: SINUS RHYTHM WITH HR 69. SHE WAS GIVEN REGEN-COV IV X 1 DOSE IN THE ER. SHE WAS ADMITTED TO THE HOSPITAL FOR FURTHER EVALUATION AND TREATMENT OF PNEUMONIA DUE TO COVID-19, RESPIRATORY DISTRESS, UTI, WEAKNESS, AND HYPOKALEMIA. SHE WAS GIVEN REGEN-COV IV X 1 DOSE IN THE ER. SHE WAS STARTED ON NORMAL SALINE AT KVO, SOLU-MEDROL 80MG IV Q8H, VIBRAMYCIN 100MG PO BID, ASCORBIC ACID 1500MG IV Q6H, LOVENOX 30MG SC BID, PULMICORT NEBS, DUONEBS TID, BROVANA INHALER BID, VITAMIN D, TRICOR 160MG PO DAILY, ZINC SULFATE 220MG PO BID, VITAMIN A, PEPCID 40MG PO BID, AND THE POTASSIUM AND MAGNESIUM PROTOCOLS. OTHERWISE, WE PLAN TO FOLLOW UP WITH AM LABS AND CHEST XRAY AND CONTINUE TO MONITOR. TIME SPENT ON CLINICAL ASSESSMENT, REVIEWING LABS AND IMAGING, DECISION MAKING, AND DOCUMENTATION WAS GREATER THAN 75 MINUTES. - Past Medical History Past Medical History: Hypertension, Anemia Additional Medical History: Atrial fibrillation - Past Surgical History Surgical History: Hysterectomy Additional Surgical History: Pacemaker placement - Family History Family Medical History: Diabetes Mellitus, Coronary Artery Disease - Social History Does any household member use tobacco: No Alcohol Use: None Drug Use: None - Medications Home Medications: No Known Drug Allergies [NKDA] Allergy (Verified 06/15/21 09:39) CONTINUE taking the following medications alendronate 70 mg PO WEEKLY 06/15/21 [History] atorvastatin 20 mg PO HS 06/15/21 [History] letrozole 2.5 mg PO DAILY 06/15/21 [History] pantoprazole 40 mg PO DAILY 06/15/21 [History] sucralfate 1 g PO QID 06/15/21 [History] - Review of Systems Constitutional: Weakness Eyes: No Symptoms Reported ENT: No Symptoms Reported Respiratory: See HPI, Cough, Shortness of Breath, SOB with Excertion Cardiovascular: No Symptoms Reported Gastrointestinal: No Symptoms Reported Genitourinary: No Symptoms Reported Musculoskeletal: No Symptoms Reported Skin: No Symptoms Reported Neurological: Weakness - Physical Exam Vital Signs: Temperature 98.0 F Pulse Rate [Left Brachial] 90 Pulse Rate 83 Respiratory Rate 25 Blood Pressure [Right Arm] 129/72 Blood Pressure [Left Arm] 167/64 Blood Pressure 177/84 O2 Sat by Pulse Oximetry 93 Oriented: Normal Eyes: Normal Ear: Normal Nose: Normal Throat: Normal Respiratory: Diminished Throughout Cardiovascular: Normal : Normal Auscultation: Bowel Sounds: Normal Palpation: Normal Tenderness: Normal Skin: Normal Musculoskeletal: Normal Psychiatric: Normal Mood Description: Calm Affect: Normal Speech Pattern: Clear - Assessment/Plan (1) Pneumonia due to COVID-19 virus Status: Acute Plan: ADMIT, NORMAL SALINE AT KVO, SOLU-MEDROL 80MG IV Q8H, VIBRAMYCIN 100MG PO BID, ASCORBIC ACID 1500MG IV Q6H, LOVENOX 30MG SC BID, PULMICORT NEBS, DUONEBS TID, BROVANA INHALER BID, VITAMIN D, TRICOR 160MG PO DAILY, ZINC SULFATE 220MG PO BID, VITAMIN A, PEPCID 40MG PO BID, AND THE POTASSIUM AND MAGNESIUM PROTOCOLS. (2) Acute respiratory distress Status: Acute (3) UTI (urinary tract infection) Qualifiers: Hematuria presence: without hematuria Status: Acute (4) Hypokalemia Status: Acute (5) Generalized weakness Status: Acute - Allergies Allergies/Adverse Reactions: Allergies Allergy/AdvReac Type Severity Reaction Status Date / Time No Known Drug Allergies Allergy Verified 06/15/21 09:39 [NKDA]
[2021-06-15] MEDS: DUONEB 0.5 MG/3 MG (3 mL) NEB SCH ×2 (18:49→20:40)
[2021-06-15] MEDS ORDERED: LIPITOR TAB 20 MG PO SCH (21:00)
[2021-06-15] MEDS: CARAFATE PO SCH ×2 (21:00→21:25)
[2021-06-15] MEDS: ELIQUIS PO SCH (21:25)
[2021-06-15] MEDS ORDERED: ROBITUSSIN DM PO PRN (22:26)
[2021-06-15] MEDS ORDERED: ROBITUSSIN DM ONE (22:44)
[2021-06-16] MEDS: ASCORBIC ACID INJ MULTI-DOSE VIAL 1,500 MG in NS 100 ML IV 100 ML IV SCH ×2 (04:11→10:00)
[2021-06-16 05:28] LABS: BASOPHILS % (AUTO) 0.1 % (0.2-1.0); HEMATOCRIT 34.6 % (36.0-47.0); HEMOGLOBIN 11.8 g/dL (12.0-16.0); LYMPHOCYTES # (AUTO) 0.4 X10^3/uL (1.3-2.9); LYMPHOCYTES % (AUTO) 7.2 % (21.0-51.0); MEAN CORPUSCULAR HEMOGLOBIN 30.7 pg (27.0-34.0); MEAN CORPUSCULAR HGB CONC 34.2 g/dL (33.0-35.0); MEAN CORPUSCULAR VOLUME 89.8 fL (80.0-100.0); MEAN PLATELET VOLUME 7.7 fL (7.4-11.0); MONOCYTES # (AUTO) 0.4 x10^3/uL (0.3-0.8); MONOCYTES % (AUTO) 7.7 % (0.0-13.0); NEUTROPHILS # (AUTO) 4.2 x10^3/uL (2.2-4.8); PLATELET COUNT 223 X10^3/uL (150.0-450.0); RED BLOOD COUNT 3.86 X10^6/uL (3.5-5.4); RED CELL DISTRIBUTION WIDTH 13.4 % (11.6-16.5)
[2021-06-16 05:43] LABS: ALANINE AMINOTRANSFERASE 19 Units/L (12-78); ALBUMIN 2.6 g/dL (3.4-5.0); ALKALINE PHOSPHATASE 43 Units/L (46-116); ASPARTATE AMINO TRANSFERASE 21 Units/L (15-37); BLOOD UREA NITROGEN 12 mg/dL (7-18); CALCIUM 8.4 mg/dL (8.5-10.1); CARBON DIOXIDE 27.6 mmol/L (21-32); CHLORIDE 106 mmol/L (98-107); COR CA(FOR HYPOALB) 9.5 mg/dL (8.5-10.1); COR NA(FOR HYPERGLY) 142 mmol/L (136-145); CREATININE 0.88 mg/dL (0.55-1.02); MAGNESIUM 2.1 mg/dL (1.7-2.9); SODIUM 141 mmol/L (136-145); TOTAL PROTEIN 6.3 g/dL (6.4-8.2); eGFR NON BLACK RACES > 60 (>60)
[2021-06-16] MEDS: SOLU-Medrol 40 MG VIAL IVP SCH (05:58)
[2021-06-16] MEDS: NS 1,000 ML IV 1,000 ML IV SCH (05:58)
[2021-06-16] MEDS: DUONEB 0.5 MG/3 MG (3 mL) NEB SCH (06:07)
--- NOTE | 2021-06-16 07:15 | RAD ---
HISTORYSOBSTUDYCHEST, 1 [id number]/03/2022.TECHNIQUEAP view of the chestFINDINGSLeft chest wall pacemaker in stable position. Cardiac silhouette is stably mildly enlarged. Mediastinal contours appear normal. Mild left base hazy opacity remains. No definite pleural effusion or pneumothorax.IMPRESSIONStable mild left base hazy opacity that may be sequela of COVID 19.Electronically signed by: Slick Novoa (Jun 16, 2021 07:13:52)
[2021-06-16] MEDS: PULMICORT NEB TX 0.5 MG NEB SCH (08:43)
[2021-06-16] MEDS: BROVANA IN SCH (08:43)
[2021-06-16] MEDS ORDERED: PROTONIX TAB 40 MG PO SCH (09:00)
[2021-06-16] MEDS ORDERED: NORVASC TAB 5 MG PO SCH (09:00)
[2021-06-16] MEDS: ZINC SULFATE PO SCH (10:00)
[2021-06-16] MEDS: VIBRAMYCIN PO SCH (10:00)
[2021-06-16] MEDS: CARAFATE PO SCH (10:00)
[2021-06-16] MEDS: PEPCID TAB 40 MG PO SCH (10:00)
[2021-06-16] MEDS: ELIQUIS PO SCH (10:00)
[2021-06-16 11:21] VITALS: BP 158/82
[2021-06-17] MEDS ORDERED: VITAMIN D3 125 mcg (5,000 UNITS) PO SCH (09:00)
[2021-06-17] MEDS ORDERED: VITAMIN A PO SCH (09:00)
== END 2021-06-16 12:50 | disposition home health service (06) | DRG 177 ==
LOC: ER 18:18 → ICU 18:18
PROVIDERS: ADMIT Internal Medicine; ATTEND Internal Medicine